=== PATIENT | female | born 1955 | race Caucasian/White ===

== ENCOUNTER 2017-04-24 08:20 | Day surgery (SDC) | payer OTHER ==
[~2017-04-24] VITALS: Ht 162.6 cm; Wt 97.5 kg
[~2017-04-24 08:20] MED LIST: ASPIRIN EC325 MG PO; B COMPLETE1 EACH PO; BUTALB-ACETAMI1 EAC2 PO; CELEXA40 MG PO; CLOPIDOGREL75 MG; CRESTOR20 MG; CRESTOR20 MG PO; CYMBALTA60 MG; CYMBALTA60 MG PO; DOK PLUS TABLE1 EACH PO; FISH OIL PEARL1 EACH PO; HYDROCODON-ACE1 EAC7 PO; HYZAAR 50-121 TABLE1 PO; HYZAAR 50-121 TABLET PO; IRON325 M1 PO; LORTAB 5-325 M1 EACH PO; LOSARTAN-HCTZ1 EACH; MAGNESIUM250 MG PO; METOPROLOL SUCC25 MG; METOPROLOL SUCC25 MG PO; PLAVIX75 MG PO; SUMATRIPTAN SU100 MG; TOPAMAX100 MG PO; TOPAMAX25 MG PO; TOPAMAX50 MG PO; TOPIRAMATE25 MG; TOPROL XL100 MG PO; TOPROL XL25 MG PO; TOPROL XL50 MG PO; Topamax PO; Toprol XL PO; VITAMIN D35000 UNIT PO
[2017-04-24 09:56] VITALS: BP 108/62
[2017-04-24] MEDS ORDERED: NORCO 5/3251 TABLET PO (11:27)
[2017-04-24 13:05] VITALS: BP 117/71
[2017-04-24 14:26] VITALS: BP 142/81
== END 2017-04-24 14:30 | disposition home or self-care (01) ==
LOC: SDC 08:20
DX: K80.10 Calculus of gallbladder with chronic cholecystitis without obstruction (principal); K66.0 Peritoneal adhesions (postprocedural) (postinfection); N28.89 Other specified disorders of kidney and ureter; I25.10 Atherosclerotic heart disease of native coronary artery without angina pectoris; Z86.73 Personal history of transient ischemic attack (TIA), and cerebral infarction without residual deficits; Z79.02 Long term (current) use of antithrombotics/antiplatelets; I10 Essential (primary) hypertension; E78.5 Hyperlipidemia, unspecified; Z95.1 Presence of aortocoronary bypass graft; M19.90 Unspecified osteoarthritis, unspecified site; F32.9 Major depressive disorder, single episode, unspecified; Z87.891 Personal history of nicotine dependence; Z98.890 Other specified postprocedural states; Z80.0 Family history of malignant neoplasm of digestive organs; Z80.42 Family history of malignant neoplasm of prostate; Z82.49 Family history of ischemic heart disease and other diseases of the circulatory system; Z83.3 Family history of diabetes mellitus
CPT/HCPCS: 88304; J0131; J1100; J1170; J1885; J2250; J2405; J2710; J3010; S0074

== ENCOUNTER 2017-07-12 22:04 | Inpatient (IN) | payer OTHER ==
[~2017-07-12] VITALS: Ht 162.6 cm; Wt 97.0 kg
[~2017-07-12 22:04] MED LIST changes: +NORCO 5/3251 TABLET PO
[2017-07-13] MEDS ORDERED: PERCOCET 5/31 TABLET PO (11:57)
[2017-07-13 15:22] VITALS: BP 128/62
[2017-07-13 20:55] VITALS: BP 122/58
[2017-07-13 23:29] VITALS: BP 124/59
[2017-07-14 03:48] VITALS: BP 137/60
[2017-07-14 06:13] LABS: HEMATOCRIT 35.7 % (36.0-46.0); MCH 29.2 PG (29.0-34.0); MCHC 33.1 G/DL (30.0-36.0); MCV 88.4 FL (83-99); PLATELET COUNT 210 K/uL (156-360); RBC DIS.WIDTH-CV 13.3 % (11.8-14.6); RBC DIS.WIDTH-SD 43.8 % (39-53); RED BLOOD COUNT 4.04 M/uL (3.80-5.20); WHITE BLOOD COUNT 15.3 K/uL (4.1-10.2)
[2017-07-14 06:21] LABS: HEMOGLOBIN 11.8 G/DL (11.9-15.5)
[2017-07-14 06:31] LABS: CHLORIDE 106 MEQ/L (99-109); CREATININE 1.1 MG/DL (0.6-1.3); GFR ESTIMATE (CALCULATED) 54 mL/min/; GLUCOSE 139 mg/dL (70-99); POTASSIUM 4.3 MEQ/L (3.7-5.4); SODIUM 137 MEQ/L (136-147); UREA NITROGEN (BUN) 17 mg/dL (9-23)
[2017-07-14 07:46] VITALS: BP 118/58
[2017-07-14 08:00] VITALS: BP 168/70
[2017-07-14 11:33] VITALS: BP 116/56
[2017-07-14 16:00] VITALS: BP 128/60
[2017-07-14 22:31] VITALS: BP 145/68
[2017-07-15 06:40] VITALS: BP 143/65
[2017-07-15 15:45] VITALS: BP 137/67
[2017-07-15 22:33] VITALS: BP 130/58
[2017-07-16 06:43] VITALS: BP 123/62
== END 2017-07-16 12:27 | disposition home or self-care (01) | DRG 658 ==
LOC: ENRESERV 22:04 → 2SOUTH 07-13 05:28 → 5EAST 07-13 05:28 → ENRESERV 07-13 12:28 → 2SOUTH 07-13 12:29 → 5EAST 07-13 14:22 → ENPENDDIS 07-16 → 5EAST 07-16 12:27
PROVIDERS: Urology
PROC: 0TT10ZZ Resection of Left Kidney, Open Approach (ICD-10-PCS; principal; 2017-07-13)
DX: D30.02 Benign neoplasm of left kidney (principal); I10 Essential (primary) hypertension; M19.90 Unspecified osteoarthritis, unspecified site; G43.909 Migraine, unspecified, not intractable, without status migrainosus; Z86.73 Personal history of transient ischemic attack (TIA), and cerebral infarction without residual deficits; Z95.1 Presence of aortocoronary bypass graft; Z87.891 Personal history of nicotine dependence; Z79.02 Long term (current) use of antithrombotics/antiplatelets
CPT/HCPCS: 36415; 80048; 80061; 83036; 85025; 85025 91; 85027; 85610; 85730; 86850; 86900; 86901; 88307; J0330; J0690; J1100; J1170; J2250; J2405; J2710; J3010; J7120; Q0175